=== PATIENT | male | born 1945 | race Caucasian/White ===

== ENCOUNTER 2016-07-04 10:26 | Inpatient (IN) | payer BC, MEDICARE ==
[~2016-07-04] VITALS: Ht 172.7 cm; Wt 85.2 kg
[2016-07-04] MEDS ORDERED: SODIUM CHLORIDE 0.9% 1,000 ML IV ONE (10:32)
[2016-07-04] MEDS ORDERED: MIDAZOLAM HCL 5 MG/ML-1ML VIAL ONE (10:55)
[2016-07-04] MEDS ORDERED: SUCCINYLCHOLINE CHLORIDE 20 MG/ML 10ML VIAL IV ONE (10:55)
[2016-07-04] MEDS ORDERED: ETOMIDATE (2MG/ML) 20ML VIAL IV ONE (10:55)
[2016-07-04 11:14] LABS: Basophils # (auto) 0 uL; Basophils % (auto) 0.1 % (0.0-2.0); Eosinophils # (auto) 0 uL; Eosinophils % (auto) 0.1 % (0.0-7.0); Hematocrit 47.1 % (41.0-53.0); Hemoglobin 15.2 g/dL (13.5-17.5); Lymphocytes # (auto) 0.2 uL; Mean Corpuscular Hemoglobin 30.6 pg (28.0-32.0); Mean Corpuscular Hgb Conc. 32.3 g/dL (32.0-36.0); Mean Corpuscular Volume 94.7 fL (80.0-100.0); Mean Platelet Volume 7.5 fL (7.4-10.4); Monocytes # (auto) 1.4 uL; Monocytes % (auto) 14.1 % (0.0-12.0); Neutrophils # (auto) 8.5 uL; Neutrophils % (auto) 83.7 % (37.0-80.0); Platelet Count (auto) 265 10^3/uL (140-450); Red Cell Distribution Width 14.3 % (11.6-16.0); White Blood Cell 10.1 10^3/uL (4.4-10.8)
[2016-07-04 11:37] LABS: INR 1.07 (0.9-1.15); Prothrombin Time 11.6 sec (9.37-12.3)
[2016-07-04 11:54] LABS: Albumin 3.7 g/dL (3.4-5.0); BUN/Creatinine Ratio 30.8; Bilirubin, Total 0.5 mg/dL (0.2-1.0); Calcium 7.8 mg/dL (8.5-10.1); Magnesium 3.3 mg/dL (1.6-2.6); Potassium 5.3 mmol/L (3.5-5.1); Total Protein 7.1 g/dL (6.4-8.2)
[2016-07-04] MEDS ORDERED: FUROSEMIDE 40 MG/4 ML VIAL IV ONE (13:15)
[2016-07-04 14:36] LABS: Urine Bilirubin Negative (Negative); Urine Color Yellow (Yellow); Urine Glucose Normal (Normal); Urine Ketone Negative (Negative); Urine Nitrite Negative (Negative); Urine RBC 9 /hpf (0 - 3); Urine Urobilinogen Normal (Negative); Urine pH 6.5 (5.0-8.0)
[2016-07-04 14:51] LABS: Urine Blood 2+ /uL (Negative)
[2016-07-04] MEDS ORDERED: MORPHINE SULF INJ 2 MG/ML SYRINGE 1ML ONE (16:01)
[2016-07-04] MEDS ORDERED: MORPHINE SULF INJ 2 MG/ML SYRINGE 1ML IV ONE (16:15)
[2016-07-04] MEDS ORDERED: cefTRIAXone 1GM/50ML D5W 50 ML IV ONE (16:30)
[2016-07-04] MEDS ORDERED: diphenhdrAMINE HCL 25 MG CAP PO PRN (16:30)
[2016-07-04] MEDS ORDERED: ACETAMINOPHEN 325 MG TAB PO PRN (16:45)
[2016-07-04] MEDS ORDERED: MORPHINE SULF INJ 2 MG/ML SYRINGE 1ML IV PRN (16:45)
[2016-07-04] MEDS ORDERED: DEXTROSE (50%) 50ML SYRG IV PRN (16:45)
[2016-07-04] MEDS ORDERED: NITROGLYCERIN 0.4 MG SL TAB SL PRN (16:45)
[2016-07-04] MEDS ORDERED: DOCUSATE SOD 100 MG CAP PO PRN (16:45)
[2016-07-04] MEDS: NYSTATIN (MOUTH-THROAT) 500,000 UNITS/5 ML SUSP MT SCH ×2 (17:43→22:29)
[2016-07-04] MEDS: InsuLIN REG 1unit/0.01ml Soln (100units/ml) SC SCH ×2 (18:01→22:00)
[2016-07-04] MEDS: HYDROcodone-ACET 10/325MG TAB PO PRN ×2 (18:02→22:43)
[2016-07-04] MEDS: ACCU-CHEK COMFORT CURVE STRIP VI SCH ×2 (18:02→22:00)
[2016-07-04] MEDS: ALBUTEROL SULF 2.5 MG/0.5ML(0.5%) NEB SOLN NEB SCH ×2 (18:29→22:29)
[2016-07-04] MEDS: HYDROmorphone HCL 2 MG/ML VL IV PRN (20:28)
[2016-07-04] MEDS: ONDANSETRON HCL 4 MG/2 ML VIAL IV PRN (20:28)
[2016-07-04 20:29] LABS: B-Type Natriuretic Peptide 102.73 pg/mL (0-100)
[2016-07-04 20:30] LABS: Temperature: 23.1 C (20.0-25.0)
[2016-07-04] MEDS: SILDENAFIL CITRATE 20 MG TAB PO SCH (22:00)
[2016-07-04] MEDS: FAMOTIDINE 20 MG TAB PO SCH (22:00)
[2016-07-04 22:17] VITALS: BP 133/67
[2016-07-04] MEDS: FLUTICASONE PROP NASAL SPR 0.05 % (50MCG) 16GM EACHNOSTRI SCH (22:29)
[2016-07-04] MEDS: SODIUM CHLOR 0.9% PF (SALINE LOCK) 10ML VIAL IV SCH (22:29)
[2016-07-04] MEDS: DOXAZOSIN MESYL 2 MG TAB PO SCH (22:29)
[2016-07-04] MEDS: TEMAZEPAM 15 MG CAP PO PRN (22:44)
[2016-07-05] VITALS (10 sets, daily range): BP systolic 112–156; BP diastolic 54–81
[2016-07-05] MEDS: HYDROmorphone HCL 2 MG/ML VL IV PRN ×5 (00:37→21:45)
[2016-07-05] MEDS: ONDANSETRON HCL 4 MG/2 ML VIAL IV PRN ×4 (00:38→21:46)
[2016-07-05] MEDS ORDERED: methylPREDNISolone SOD SUCC 125 MG/2 ML VL IV ONE (01:45)
[2016-07-05] MEDS: ALBUTEROL SULF 2.5 MG/0.5ML(0.5%) NEB SOLN NEB SCH ×6 (02:00→21:46)
[2016-07-05] MEDS: HYDROcodone-ACET 10/325MG TAB PO PRN ×4 (02:46→23:31)
[2016-07-05 04:23] LABS: Basophils # (auto) 0 uL; Eosinophils # (auto) 0 uL; Hematocrit 42.4 % (41.0-53.0); Hemoglobin 13.8 g/dL (13.5-17.5); Lymphocytes # (auto) 0.1 uL; Lymphocytes % (auto) 1.4 % (10.0-50.0); Mean Corpuscular Hemoglobin 30.3 pg (28.0-32.0); Mean Corpuscular Hgb Conc. 32.5 g/dL (32.0-36.0); Mean Corpuscular Volume 93.1 fL (80.0-100.0); Mean Platelet Volume 7.8 fL (7.4-10.4); Monocytes # (auto) 0.4 uL; Monocytes % (auto) 5.2 % (0.0-12.0); Neutrophils # (auto) 7.7 uL; Neutrophils % (auto) 93.4 % (37.0-80.0); Platelet Count (auto) 212 10^3/uL (140-450); White Blood Cell 8.2 10^3/uL (4.4-10.8)
[2016-07-05 04:58] LABS: Albumin 3.2 g/dL (3.4-5.0); BUN/Creatinine Ratio 34.9; Calcium 7.7 mg/dL (8.5-10.1); Potassium 4.9 mmol/L (3.5-5.1)
[2016-07-05 05:01] LABS: Bilirubin, Total 0.6 mg/dL (0.2-1.0); Total Protein 6.4 g/dL (6.4-8.2)
[2016-07-05] MEDS: IPRATROPIUM BROM 0.5 MG/2.5ML INH SOL NEB PRN ×3 (05:43→21:47)
[2016-07-05] MEDS: FUROSEMIDE 40 MG/4 ML VIAL IV SCH ×2 (06:00→17:58)
[2016-07-05] MEDS: NYSTATIN (MOUTH-THROAT) 500,000 UNITS/5 ML SUSP MT SCH ×4 (06:00→22:12)
[2016-07-05] MEDS: SODIUM CHLOR 0.9% PF (SALINE LOCK) 10ML VIAL IV SCH ×3 (06:00→22:12)
[2016-07-05] MEDS: InsuLIN REG 1unit/0.01ml Soln (100units/ml) SC SCH ×4 (06:47→22:22)
[2016-07-05] MEDS: ACCU-CHEK COMFORT CURVE STRIP VI SCH ×4 (06:47→22:22)
[2016-07-05] MEDS ORDERED: PROCHLORPERAZINE EDISYLATE 5 MG/ML 2ML VIAL IV ONE (08:15)
[2016-07-05] MEDS: cefTRIAXone 1GM/50ML D5W 50 ML IV SCH (09:55)
[2016-07-05] MEDS: FLUTICASONE PROP NASAL SPR 0.05 % (50MCG) 16GM EACHNOSTRI SCH ×2 (09:55→22:17)
[2016-07-05] MEDS: MULTIPLE VITAMIN TAB PO SCH (09:58)
[2016-07-05] MEDS: methylPREDNISolone SOD SUCC 125 MG/2 ML VL IV SCH ×2 (09:58→22:14)
[2016-07-05] MEDS: POTASSIUM CHLORIDE 8 MEQ TAB PO SCH (09:58)
[2016-07-05] MEDS: FAMOTIDINE 20 MG TAB PO SCH ×2 (09:59→22:14)
[2016-07-05] MEDS: SILDENAFIL CITRATE 20 MG TAB PO SCH (09:59)
[2016-07-05] MEDS: amLODIPine BESYLATE 5 MG TAB PO SCH (12:28)
[2016-07-05] MEDS: LOSARTAN POTASSIUM 50 MG TAB PO SCH (12:28)
[2016-07-05] MEDS ORDERED: ASPirin 325 MG TAB PO ONE (14:00)
[2016-07-05] MEDS: TEMAZEPAM 15 MG CAP PO PRN (21:45)
[2016-07-05] MEDS: DOXAZOSIN MESYL 2 MG TAB PO SCH (22:00)
[2016-07-06] MEDS: ALBUTEROL SULF 2.5 MG/0.5ML(0.5%) NEB SOLN NEB SCH ×6 (02:00→22:30)
[2016-07-06] MEDS: IPRATROPIUM BROM 0.5 MG/2.5ML INH SOL NEB PRN ×4 (02:32→14:17)
[2016-07-06] MEDS: HYDROmorphone HCL 2 MG/ML VL IV PRN ×5 (02:43→21:51)
[2016-07-06] MEDS: ONDANSETRON HCL 4 MG/2 ML VIAL IV PRN (02:43)
[2016-07-06 05:35] LABS: Basophils # (auto) 0.1 uL; Basophils % (auto) 0.9 % (0.0-2.0); Eosinophils # (auto) 0 uL; Hemoglobin 13.2 g/dL (13.5-17.5); Lymphocytes # (auto) 0.1 uL; Lymphocytes % (auto) 0.8 % (10.0-50.0); Mean Corpuscular Hemoglobin 30.2 pg (28.0-32.0); Mean Corpuscular Hgb Conc. 32.2 g/dL (32.0-36.0); Mean Corpuscular Volume 93.8 fL (80.0-100.0); Mean Platelet Volume 7.8 fL (7.4-10.4); Monocytes # (auto) 0.4 uL; Monocytes % (auto) 3.9 % (0.0-12.0); Neutrophils # (auto) 9.8 uL; Neutrophils % (auto) 94.4 % (37.0-80.0); Platelet Count (auto) 214 10^3/uL (140-450); Red Cell Distribution Width 13.9 % (11.6-16.0); White Blood Cell 10.4 10^3/uL (4.4-10.8)
[2016-07-06] MEDS: HYDROcodone-ACET 10/325MG TAB PO PRN ×4 (05:35→20:10)
[2016-07-06 05:57] LABS: Albumin 2.9 g/dL (3.4-5.0); BUN/Creatinine Ratio 41.8; Calcium 7.9 mg/dL (8.5-10.1); Potassium 4.2 mmol/L (3.5-5.1)
[2016-07-06 06:01] LABS: Bilirubin, Total 0.5 mg/dL (0.2-1.0); Total Protein 6.3 g/dL (6.4-8.2)
[2016-07-06] MEDS: SODIUM CHLOR 0.9% PF (SALINE LOCK) 10ML VIAL IV SCH ×3 (06:08→21:47)
[2016-07-06] MEDS: NYSTATIN (MOUTH-THROAT) 500,000 UNITS/5 ML SUSP MT SCH ×4 (06:17→21:47)
[2016-07-06] MEDS: FUROSEMIDE 40 MG/4 ML VIAL IV SCH ×2 (06:17→18:29)
[2016-07-06] MEDS: ACCU-CHEK COMFORT CURVE STRIP VI SCH ×4 (06:21→22:00)
[2016-07-06] MEDS: InsuLIN REG 1unit/0.01ml Soln (100units/ml) SC SCH ×4 (06:25→23:00)
[2016-07-06] MEDS: cefTRIAXone 1GM/50ML D5W 50 ML IV SCH (09:19)
[2016-07-06] MEDS: FLUTICASONE PROP NASAL SPR 0.05 % (50MCG) 16GM EACHNOSTRI SCH ×2 (10:48→21:47)
[2016-07-06] MEDS: ASPirin 325 MG TAB PO SCH (10:49)
[2016-07-06] MEDS: POTASSIUM CHLORIDE 8 MEQ TAB PO SCH (10:51)
[2016-07-06] MEDS: LOSARTAN POTASSIUM 50 MG TAB PO SCH (10:51)
[2016-07-06] MEDS: amLODIPine BESYLATE 5 MG TAB PO SCH (10:52)
[2016-07-06] MEDS: MULTIPLE VITAMIN TAB PO SCH (10:52)
[2016-07-06] MEDS: SILDENAFIL CITRATE 20 MG TAB PO SCH (10:53)
[2016-07-06] MEDS: methylPREDNISolone SOD SUCC 125 MG/2 ML VL IV SCH (10:58)
[2016-07-06] MEDS: FAMOTIDINE 20 MG TAB PO SCH ×2 (10:58→21:48)
[2016-07-06] MEDS ORDERED: AZITHROMYCIN 500MG/D5W 250ML 250 ML IV ONE (14:00)
[2016-07-06 17:30] VITALS: BP 125/64
[2016-07-06] MEDS ORDERED: ALBU18 (18:01)
[2016-07-06] MEDS ORDERED: LACT10SO (18:01)
[2016-07-06] MEDS ORDERED: HCTZ25T (18:01)
[2016-07-06] MEDS ORDERED: FLUT50SP13 (18:01)
[2016-07-06] MEDS ORDERED: PRE5T (18:01)
[2016-07-06] MEDS ORDERED: TEMA30CA (18:01)
[2016-07-06] MEDS ORDERED: CLOB0.055 (18:01)
[2016-07-06] MEDS ORDERED: HYDR4TAB2 (18:01)
[2016-07-06 20:00] VITALS: BP 128/77
[2016-07-06] MEDS: methylPREDNISolone SOD SUCC 40 MG/ML VL IV SCH (21:47)
[2016-07-06] MEDS: TEMAZEPAM 15 MG CAP PO PRN (21:48)
[2016-07-06] MEDS: DOXAZOSIN MESYL 2 MG TAB PO SCH (21:50)
[2016-07-07] VITALS (7 sets, daily range): BP systolic 114–140; BP diastolic 69–85
[2016-07-07] MEDS: HYDROcodone-ACET 10/325MG TAB PO PRN ×6 (00:17→22:54)
[2016-07-07] MEDS: HYDROmorphone HCL 2 MG/ML VL IV PRN ×5 (02:22→21:26)
[2016-07-07] MEDS: ALBUTEROL SULF 2.5 MG/0.5ML(0.5%) NEB SOLN NEB SCH ×6 (02:30→22:00)
[2016-07-07 05:22] LABS: BUN/Creatinine Ratio 37.5; Calcium 8.1 mg/dL (8.5-10.1); Potassium 3.8 mmol/L (3.5-5.1)
[2016-07-07 06:06] LABS: Thyroxine (T4) 4.5 ug/dL (4.5-12.0)
[2016-07-07] MEDS: ACCU-CHEK COMFORT CURVE STRIP VI SCH ×4 (07:00→22:10)
[2016-07-07] MEDS: SODIUM CHLOR 0.9% PF (SALINE LOCK) 10ML VIAL IV SCH ×3 (07:00→22:09)
[2016-07-07] MEDS: NYSTATIN (MOUTH-THROAT) 500,000 UNITS/5 ML SUSP MT SCH ×4 (07:00→22:08)
[2016-07-07] MEDS: FUROSEMIDE 40 MG/4 ML VIAL IV SCH ×2 (07:00→17:59)
[2016-07-07] MEDS: InsuLIN REG 1unit/0.01ml Soln (100units/ml) SC SCH ×4 (07:01→22:00)
[2016-07-07] MEDS: cefTRIAXone 1GM/50ML D5W 50 ML IV SCH (08:50)
[2016-07-07] MEDS: FLUTICASONE PROP NASAL SPR 0.05 % (50MCG) 16GM EACHNOSTRI SCH ×2 (09:06→22:09)
[2016-07-07] MEDS: LOSARTAN POTASSIUM 50 MG TAB PO SCH (09:07)
[2016-07-07] MEDS: methylPREDNISolone SOD SUCC 40 MG/ML VL IV SCH ×2 (09:07→22:08)
[2016-07-07] MEDS: POTASSIUM CHLORIDE 8 MEQ TAB PO SCH (09:07)
[2016-07-07] MEDS: ASPirin 325 MG TAB PO SCH (09:07)
[2016-07-07] MEDS: FAMOTIDINE 20 MG TAB PO SCH ×2 (09:08→22:00)
[2016-07-07] MEDS: MULTIPLE VITAMIN TAB PO SCH (09:08)
[2016-07-07] MEDS: SILDENAFIL CITRATE 20 MG TAB PO SCH (09:08)
[2016-07-07] MEDS: amLODIPine BESYLATE 5 MG TAB PO SCH (09:08)
[2016-07-07] MEDS ORDERED: AZITHROMYCIN 500MG/D5W 250ML 250 ML IV SCH (10:00)
[2016-07-07] MEDS: DOXYCYCLINE 100 MG TAB/CAP PO SCH ×2 (14:01→22:08)
[2016-07-07] MEDS ORDERED: RIVAROXABAN 20 MG TAB PO SCH (18:00)
[2016-07-07] MEDS: DOXAZOSIN MESYL 2 MG TAB PO SCH (22:09)
== END 2016-07-08 00:59 | disposition short-term general hospital (02) | DRG 291 ==
LOC: ER 10:34 → TELE 10:35 → DOU IN ICU 07-06 17:00
PROVIDERS: ADMIT Internal Medicine; ATTEND Internal Medicine Geriatric Medicine
PROC: 5A09457 Assistance with Respiratory Ventilation, 24-96 Consecutive Hours, Continuous Positive Airway Pressure (ICD-10-PCS; principal; 2016-07-04)
DX: I50.31 Acute diastolic (congestive) heart failure (principal); J96.21 Acute and chronic respiratory failure with hypoxia; J18.9 Pneumonia, unspecified organism; J44.1 Chronic obstructive pulmonary disease with (acute) exacerbation; J44.0 Chronic obstructive pulmonary disease with (acute) lower respiratory infection; I48.92 Unspecified atrial flutter; E87.1 Hypo-osmolality and hyponatremia; D68.69 Other thrombophilia; J20.9 Acute bronchitis, unspecified; E87.5 Hyperkalemia; E83.41 Hypermagnesemia; E83.51 Hypocalcemia; E66.9 Obesity, unspecified; E11.65 Type 2 diabetes mellitus with hyperglycemia; G47.33 Obstructive sleep apnea (adult) (pediatric); M54.5 Low back pain; G89.29 Other chronic pain; I27.2 Other secondary pulmonary hypertension; I48.2 Chronic atrial fibrillation; Z79.01 Long term (current) use of anticoagulants; Z99.81 Dependence on supplemental oxygen; Z87.11 Personal history of peptic ulcer disease; Z88.1 Allergy status to other antibiotic agents; Z68.28 Body mass index [BMI] 28.0-28.9, adult
CPT/HCPCS: 36415; 36600; 51702; 71010; 80048; 80053; 81001; 82805; 82962; 83036; 83735; 83880; 84443; 84484; 85025; 85610; 85730; 87040; 87070; 87077; 87081; 87186; 87205; 87400; 93005; 93306; 94640; 94660; 96374; 99291; J0330; J0696; J1815; J2250; J2405

== ENCOUNTER 2016-10-24 17:06 | Emergency (ER) | payer BC ==
[~2016-10-24] VITALS: Ht 175.3 cm; Wt 79.4 kg
[~2016-10-24 17:06] MED LIST: ALBU18; ATROPINE SULF 0.5 MG/5ML SYR IV ONE; CALCIUM CHLOR(10%) 100MG/ML 10ML SYRINGE IV ONE; CLOB0.055; EPINEPHrine HCL 1 MG/10 ML SYRG IV ONE; FLUT50SP13; HCTZ25T; HYDR4TAB2; LACT10SO3; PRE5T; SODIUM BICARBONATE 8.4% INJ 50ML SYRINGE IV ONE; TEMA30CA
[2016-10-24 17:12] VITALS: BP 0/0
== END 2016-10-24 21:19 | disposition expired ==
LOC: EDBD 17:06 → ER 17:07
DX: I46.9 Cardiac arrest, cause unspecified (principal); Z88.8 Allergy status to other drugs, medicaments and biological substances; I48.91 Unspecified atrial fibrillation; I50.9 Heart failure, unspecified; J44.9 Chronic obstructive pulmonary disease, unspecified
CPT/HCPCS: 31500; 92950; 99285; J0171; J0461